=== PATIENT | male | born 1970 | race Caucasian/White ===

== ENCOUNTER 2018-12-03 16:54 | Emergency (ER) | payer BC ==
[~2018-12-03] VITALS: Ht 175.3 cm; Wt 97.7 kg
[2018-12-03] MEDS ORDERED: nitroGLYCERIN 0.4mg SUBLingual tab SL PRN (19:45)
[2018-12-03] MEDS ORDERED: glucagon, human recombinant 1mg kit IV ONE (19:45)
[2018-12-03] MEDS ORDERED: NO HOME MEDS (21:39)
[2018-12-03 23:12] LABS: BASOPHILS % (AUTO) 0.3 % (0-1); EOSINOPHILS # (AUTO) 0.2 X10'3 (0-0.9); LYMPHOCYTES # (AUTO) 1.8 X10'3 (1.1-4.8); MEAN CORPUSCULAR HEMOGLOBIN 27.9 PG (27.0-31.0); MEAN CORPUSCULAR HGB CONC 32.5 % (33.0-36.5); MEAN CORPUSCULAR VOLUME 86.1 FL (78-98); MEAN PLATELET VOLUME 8.8 FL (7.4-10.4); MONOCYTES # (AUTO) 0.3 X10'3 (0-0.9); MONOCYTES % (AUTO) 2.5 % (2-12); NEUTROPHILS # (AUTO) 9.5 X10'3 (1.8-7.7); NEUTROPHILS % (AUTO) 80.2 % (42-75); PLATELET COUNT 273 X10'3 (140-440); RED BLOOD COUNT 6.51 X10'6 (4.70-6.10); RED CELL DISTRIBUTION WIDTH 12.6 % (11.5-14.5); WHITE BLOOD COUNT 11.8 X10'3 (4.5-11.0)
[2018-12-03 23:20] LABS: ALANINE AMINOTRANSFERASE 62 U/L (12-78); ALBUMIN 4.2 G/DL (3.4-5.0); ALKALINE PHOSPHATASE 126 IU/L (46-116); ANION GAP 12 (8-16); ASPARTATE AMINO TRANSFERASE 31 U/L (10-37); BILIRUBIN,TOTAL 1.2 MG/DL (0.1-1.0); BLOOD UREA NITROGEN 19 MG/DL (7-18); BUN/CREATININE RATIO 17.4 (5.4-32.0); CALCIUM 9.5 MG/DL (8.5-10.1); CHLORIDE 102 MMOL/L (99-107); CREATININE 1.09 MG/DL (0.60-1.10); GLUCOSE 104 MG/DL (70-104); HEMOGLOBIN 18.2 g/dl (14.0-17.9); SODIUM 141 MMOL/L (135-145); TOTAL CARBON DIOXIDE 27.3 MMOL/L (24-32); TOTAL PROTEIN 8.6 G/DL (6.4-8.2); eGFR 72 ML/MIN
[2018-12-04] VITALS: BP 129/94
[2018-12-04] MEDS ORDERED: MIDAZolam 5mg/5ml vial ONE (00:19)
[2018-12-04] MEDS ORDERED: LIDOcaine Viscous 15ml cup ONE (00:19)
[2018-12-04] MEDS ORDERED: fentaNYL/PF 50MCG/1 ML 2ML syringe ONE (00:19)
[2018-12-04 00:43] VITALS: BP 127/85
[2018-12-04 00:53] VITALS: BP 134/99
[2018-12-04 01:03] VITALS: BP 125/90
[2018-12-04 01:13] VITALS: BP 130/86
[2018-12-04 01:33] VITALS: BP 122/83
--- NOTE | 2018-12-04 01:33 | NUR ---
GI LAB INFORMED LAURY DAS ABOUT PT PROCEDURE, PT HANDLED PROCEDURE WELL AND PER GI FEELS PT CAN BE DC'D HOME. LAURY DAS TO CONSULT WITH DR NGUYEN.
== END 2018-12-04 02:00 | disposition home or self-care (01) ==
LOC: ER 16:55
DX: K22.0 Achalasia of cardia (principal); R13.10 Dysphagia, unspecified
CPT/HCPCS: 36415; 43239; 43247; 80053; 85025; 96374; 99152; 99153; 99285; J1610; J2250; J3010; J7030